=== PATIENT | male | born 1980 | race Caucasian/White ===

== ENCOUNTER 2016-07-15 18:38 | Emergency (ER) | payer SELFPAY ==
[~2016-07-15] VITALS: Ht 175.3 cm; Wt 68.0 kg
--- NOTE | 2016-07-15 20:29 | NUR ---
Account created in error, patient gave correct name and information and another account was created.
== END 2016-07-15 20:30 | disposition left against medical advice (07) ==
LOC: ER 19:28
DX: Z53.21 Procedure and treatment not carried out due to patient leaving prior to being seen by health care provider (principal)

== ENCOUNTER 2016-07-15 18:55 | Emergency (ER) | payer SELFPAY ==
[~2016-07-15] VITALS: Ht 175.3 cm; Wt 68.0 kg
[2016-07-15] MEDS ORDERED: HYDROMORPHONE 1 MG/1 ML DISP.SYRIN IM ONE (19:15)
--- NOTE | 2016-07-15 19:20 | NUR ---
Pt states "I popped back my shoulder in." DR Drew into re eval Pt. Pt requesting to be discharge
--- NOTE | 2016-07-15 19:25 | NUR ---
Patient discharged to home in stable conditon. Written and verbal after care instructions given. Patient verbalizes understanding of instructions. Walked out of ER with no distress noted
== END 2016-07-15 19:27 | disposition home or self-care (01) ==
LOC: ER 18:58 → MERGE 18:58 → ER 19:27
DX: S43.004A Unspecified dislocation of right shoulder joint, initial encounter (principal); F11.10 Opioid abuse, uncomplicated; Z88.0 Allergy status to penicillin; Z88.8 Allergy status to other drugs, medicaments and biological substances; Z59.0 Homelessness; W18.30XA Fall on same level, unspecified, initial encounter; Y93.89 Activity, other specified; Y99.8 Other external cause status; Y92.89 Other specified places as the place of occurrence of the external cause
CPT/HCPCS: 99283; A4663

== ENCOUNTER 2016-11-15 09:04 | Emergency (ER) | payer OTHER ==
[~2016-11-15] VITALS: Ht 175.3 cm; Wt 68.0 kg
--- NOTE | 2016-11-15 09:10 | NUR ---
pt in room awaiting mse.
--- NOTE | 2016-11-15 09:52 | NUR ---
PT EVALUATED BY DR ROPER. PREASCRIPTION GIVEN TO PATIENT - EXPLAINED BY DR ROPER. DISCHARGED IN STABLE CONDITION.
== END 2016-11-15 09:56 | disposition home or self-care (01) ==
LOC: ER 09:04
DX: L02.416 Cutaneous abscess of left lower limb (principal); L03.116 Cellulitis of left lower limb; Z59.0 Homelessness; Z88.0 Allergy status to penicillin; Z88.8 Allergy status to other drugs, medicaments and biological substances
CPT/HCPCS: A4663

== ENCOUNTER 2017-01-11 03:15 | Emergency (ER) | payer OTHER ==
[~2017-01-11] VITALS: Ht 175.3 cm; Wt 71.2 kg
[2017-01-11] MEDS ORDERED: MORPHINE SULFATE 2 MG/1 ML DISP.SYRIN IV ONE (04:15)
[2017-01-11] MEDS ORDERED: ONDANSETRON 4 MG/2 ML VIAL IV ONE (04:15)
[2017-01-11] MEDS ORDERED: LORAZEPAM 2 MG/1 ML VIAL IM ONE (04:45)
[2017-01-11] MEDS ORDERED: LORAZEPAM 2 MG/1 ML VIAL ONE (04:54)
--- NOTE | 2017-01-11 05:20 | NUR ---
PATIENT STATES "I THINK I POPPED BACK MY SHOULDER."
--- NOTE | 2017-01-11 05:24 | NUR ---
UNIX ADMINISTRATOR IN ROOM DOING X RAY
--- NOTE | 2017-01-11 06:37 | NUR ---
Patient discharged to home in stable conditon. Written and verbal after care instructions given. Patient verbalizes understanding of instructions. WALKED OUT OF ER WITH STEADY GAIT
[2017-01-11 06:38] VITALS: BP 128/77
== END 2017-01-11 06:39 | disposition home or self-care (01) ==
LOC: ER 03:15
DX: S43.004A Unspecified dislocation of right shoulder joint, initial encounter (principal); Z88.0 Allergy status to penicillin; W01.0XXA Fall on same level from slipping, tripping and stumbling without subsequent striking against object, initial encounter; Y93.89 Activity, other specified; Y92.9 Unspecified place or not applicable; Y99.9 Unspecified external cause status
CPT/HCPCS: 73020; 73030; A4663; J2060

== ENCOUNTER 2017-01-30 17:35 | Emergency (ER) | payer OTHER ==
[~2017-01-30] VITALS: Ht 157.5 cm; Wt 63.5 kg
--- NOTE | 2017-01-30 18:15 | NUR ---
PT IS IN ROOM #1B. DR QUINTEROS EVALUATED THE PT.
[2017-01-30] MEDS ORDERED: LORAZEPAM 0.5 MG TABLET PO ONE (19:00)
--- NOTE | 2017-01-30 19:05 | NUR ---
PT WAS D/C TO HOME. D/C INSTRUCTIONS GIVEN TO THE PT.
[2017-01-30 19:06] VITALS: BP 136/73
[2017-01-30] MEDS ORDERED: LORAZEPAM 1 MG TABLET ONE (19:11)
== END 2017-01-30 19:07 | disposition home or self-care (01) ==
LOC: ER 17:36
DX: L03.114 Cellulitis of left upper limb (principal); L03.116 Cellulitis of left lower limb; L03.115 Cellulitis of right lower limb; F11.10 Opioid abuse, uncomplicated; Z59.0 Homelessness; Z88.0 Allergy status to penicillin
CPT/HCPCS: A4663

== ENCOUNTER 2017-04-18 04:41 | Emergency (ER) | payer OTHER ==
[~2017-04-18] VITALS: Ht 172.7 cm; Wt 68.0 kg
--- NOTE | 2017-04-18 06:27 | NUR ---
Patient discharged to home in stable conditon. Written and verbal after care instructions given. Patient verbalizes understanding of instructions.
== END 2017-04-18 06:28 | disposition home or self-care (01) ==
LOC: ER 04:50
DX: Z48.01 Encounter for change or removal of surgical wound dressing (principal); L02.416 Cutaneous abscess of left lower limb; Z88.0 Allergy status to penicillin
CPT/HCPCS: A4663

== ENCOUNTER 2017-06-18 02:04 | Emergency (ER) | payer OTHER ==
[~2017-06-18] VITALS: Ht 180.3 cm; Wt 74.8 kg
--- NOTE | 2017-06-18 02:10 | NUR ---
Dr. Johnson at bedside for MSE.
--- NOTE | 2017-06-18 02:15 | NUR ---
Patient brought in by rescue, lethargic, reports pain on right shoulder, has multiple abscess cobian on arms, has history of heroine abuse.
--- NOTE | 2017-06-18 04:30 | NUR ---
Patient sleeping in bed, no acute signs of distress.
--- NOTE | 2017-06-18 06:04 | NUR ---
Patient sleeping in bed, no signs of distress.
--- NOTE | 2017-06-18 07:08 | NUR ---
Passed SBAR report to Nghia GRULLON.
--- NOTE | 2017-06-18 07:10 | NUR ---
Hands off report received from Sajan GRULLON, pt sleeping with NAD noted.
--- NOTE | 2017-06-18 07:40 | NUR ---
Written and verbal after care instructions given. Patient verbalizes understanding of instructions. Pt states he is hungry, breakfast tray ordered for pt. Pt ambulated to restroom with steady gait.
--- NOTE | 2017-06-18 08:00 | NUR ---
Pt eating breakfast.
--- NOTE | 2017-06-18 08:25 | NUR ---
Pt ambulated out of ER with steady gait.
== END 2017-06-18 08:30 | disposition home or self-care (01) ==
LOC: ER 02:04
DX: S43.004A Unspecified dislocation of right shoulder joint, initial encounter (principal); F12.10 Cannabis abuse, uncomplicated; F11.10 Opioid abuse, uncomplicated; F15.10 Other stimulant abuse, uncomplicated; Z88.0 Allergy status to penicillin; Z88.8 Allergy status to other drugs, medicaments and biological substances; Z59.0 Homelessness; X58.XXXA Exposure to other specified factors, initial encounter; Y93.89 Activity, other specified; Y92.89 Other specified places as the place of occurrence of the external cause; Y99.8 Other external cause status
CPT/HCPCS: 73020; 73030; A4663

== ENCOUNTER 2017-08-06 17:55 | Emergency (ER) | payer OTHER ==
[~2017-08-06] VITALS: Ht 180.3 cm; Wt 71.7 kg
--- NOTE | 2017-08-06 18:55 | NUR ---
Dr Johnson at the bedside for MSE.
--- NOTE | 2017-08-06 19:05 | NUR ---
REPORT TAKEN FROM MITCHEL LOWERY. ASSUMED PT CARE AT THIS TIME. PENDING XRAY.
[2017-08-06] MEDS ORDERED: CLINDAMYCIN HCL 150 MG CAPSULE ONE (19:29)
[2017-08-06] MEDS ORDERED: CLINDAMYCIN HCL 150 MG CAPSULE PO ONE (19:30)
--- NOTE | 2017-08-06 19:31 | NUR ---
PT PROVIDED SNACK. PT RESTING IN BED IN A POSITION OF COMFORT. NO DISTRESS NOTED.
--- NOTE | 2017-08-06 20:03 | NUR ---
Patient discharged to home in stable conditon. Written and verbal after care instructions given. Patient verbalizes understanding of instructions. Pt ambulatory w/ steady gait. No distress noted.
[2017-08-06 20:04] VITALS: BP 132/80
== END 2017-08-06 20:22 | disposition home or self-care (01) ==
LOC: ER 17:57
DX: L03.116 Cellulitis of left lower limb (principal); F11.10 Opioid abuse, uncomplicated; F12.10 Cannabis abuse, uncomplicated; F15.10 Other stimulant abuse, uncomplicated; Z88.0 Allergy status to penicillin; Z88.8 Allergy status to other drugs, medicaments and biological substances; Z59.0 Homelessness
CPT/HCPCS: 73590; A4663

== ENCOUNTER 2021-04-19 16:59 | Emergency (ER) | payer MEDICAID, OTHER ==
[~2021-04-19] VITALS: Ht 175.3 cm; Wt 83.9 kg
[2021-04-19] MEDS ORDERED: diphenhydrAMINE 50 MG/1 ML VIAL IM ONE (19:45)
[2021-04-19] MEDS ORDERED: HALOPERIDOL LACTATE 5 MG/1 ML VIAL IM ONE (19:45)
[2021-04-19] MEDS ORDERED: LORAZEPAM 2 MG/1 ML VIAL IM ONE (19:45)
[2021-04-19] MEDS ORDERED: IV NORMAL SALINE 1000 ML BAG IV ONE (19:45)
[2021-04-19] MEDS ORDERED: LORAZEPAM 2 MG/1 ML VIAL ONE (20:05)
[2021-04-19] MEDS ORDERED: diphenhydrAMINE 50 MG/1 ML VIAL ONE (20:05)
[2021-04-19] MEDS ORDERED: HALOPERIDOL LACTATE 5 MG/1 ML VIAL ONE ×2 (20:05→22:13)
--- NOTE | 2021-04-19 22:00 | NUR ---
Patient remains uncooperative with blood draw at this time Dr Kaur made aware.
[2021-04-19] MEDS: HALOPERIDOL LACTATE 5 MG/1 ML VIAL IM ONE (22:09)
--- NOTE | 2021-04-19 22:57 | NUR ---
Unable to obtain hep lock at this time. Dr Natasha maher.
[2021-04-19 23:14] LABS: CARBON DIOXIDE 28 mmol/L (21-32); CHLORIDE 104 mmol/L (98-107); CREATININE 0.7 mg/dL (0.6-1.3); GLUCOSE 110 mg/dL (74-106); POTASSIUM 4.2 mmol/L (3.5-5.1); UREA NITROGEN, BLOOD 11 mg/dL (7-18)
[2021-04-19 23:15] LABS: ETHANOL < 3 MG/DL (0-0)
[2021-04-19 23:20] LABS: ALANINE AMINOTRANSFERASE 31 U/L (16-63); ALKALINE PHOSPHATASE 123 U/L (50-136); ASPARTATE AMINOTRANSFERASE 24 U/L (15-37); BILIRUBIN,DIRECT 0.1 mg/dL (0.0-0.2); BILIRUBIN,TOTAL 0.2 mg/dL (0.2-1.0); TOTAL PROTEIN, SERUM 7.2 g/dL (6.4-8.2)
--- NOTE | 2021-04-19 23:30 | NUR ---
PATIENT SLEEPING, RESTRAINT RELEASE. 1:1 SITTER AT BEDSIDE.
--- NOTE | 2021-04-19 23:30 | NUR ---
PATIENT SLEEPING AT THIS TIME. 1:1 SITTER AT BEDSIDE.
[2021-04-19 23:31] LABS: HEMATOCRIT 40.3 % (36.7-47.1); MEAN CORPUSCULAR VOLUME 86.8 fL (73.0-96.2); PLATELET COUNT (AUTO) 97 K/uL (152-348)
[2021-04-19 23:38] LABS: ACETAMINOPHEN < 2.0 ug/mL (10-30)
[2021-04-19 23:46] LABS: *AMPHETAMINE, URINE POSITIVE (NEGATIVE); *CANNABINOID, URINE POSITIVE (NEGATIVE); *COCCAINE, URINE NEGATIVE (NEGATIVE); *OPIATE, URINE NEGATIVE (NEGATIVE); *PHENCYCLIDINE SCREEN,URINE NEGATIVE (NEGATIVE)
[2021-04-19 23:51] LABS: *BILIRUBIN,URIN NEGATIVE (NEGATIVE); *BLOOD, URINE NEGATIVE (NEGATIVE); *CLARITY,URINE CLEAR (CLEAR); *COLOR,URINE YELLOW (YELLOW); *KETONES,URINE NEGATIVE (NEGATIVE); *UROBILINOGEN,URINE 0.2 E.U./dl (NORMAL); LEUKOCYTE ESTERASE ,URINE NEGATIVE (NEGATIVE); NITRITE, URINE NEGATIVE (NEGATIVE); UGLUCOSE NEGATIVE (NEGATIVE)
[2021-04-19 23:58] LABS: MAGNESIUM 2.1 mg/dL (1.8-2.4)
[2021-04-20] MEDS ORDERED: CYANOCOBALAMIN 1000 MCG/ML VIAL IM ONE (00:30)
--- NOTE | 2021-04-20 01:44 | NUR ---
PATIENT SCREAMING AT TIMES, RESISTING CARE LIKE HAVE VITAL SIGNS TO BE TAKEN. 1:1 SITTER AT BEDSIDE.
[2021-04-20] MEDS ORDERED: HALOPERIDOL LACTATE 5 MG/1 ML VIAL IM ONE (01:45)
[2021-04-20] MEDS ORDERED: diphenhydrAMINE 50 MG/1 ML VIAL IM ONE (01:45)
[2021-04-20] MEDS ORDERED: LORAZEPAM 2 MG/1 ML VIAL IM ONE (01:45)
[2021-04-20] MEDS ORDERED: CYANOCOBALAMIN 1000 MCG/ML VIAL ONE (01:56)
[2021-04-20] MEDS ORDERED: diphenhydrAMINE 50 MG/1 ML VIAL ONE (01:56)
[2021-04-20] MEDS ORDERED: LORAZEPAM 2 MG/1 ML VIAL ONE (01:57)
[2021-04-20] MEDS ORDERED: HALOPERIDOL LACTATE 5 MG/1 ML VIAL ONE (01:57)
--- NOTE | 2021-04-20 07:10 | NUR ---
recieved pt in bed, one to one sitter at bedside. pt arousable, but reluctant to communicate.
--- NOTE | 2021-04-20 10:00 | NUR ---
pt voided 400ml in the urinal. pt refused bf at this time.
--- NOTE | 2021-04-20 14:00 | NUR ---
KESHAV BURR AT BEDSIDE.
--- NOTE | 2021-04-20 14:30 | NUR ---
PT AWAKE, AXOX4.
--- NOTE | 2021-04-20 15:10 | NUR ---
Patient discharged to home in stable condition. Written and verbal after care instructions given. Patient verbalizes understanding of instructions. Stressed follow up or return to ER for worsening s/s.PT WALKS IN STEADY GAIT.
--- NOTE | 2021-04-20 15:10 | NUR ---
Patient given written and verbal discharge instructions. Patient verbalizes understanding of instructions. Patient is ambulatory with steady gait. Ref[place] offer of [facility] placement. Patient given list of available shelters in surrounding area.
[2021-04-20 15:11] VITALS: BP 129/69
--- NOTE | 2021-04-20 15:12 | NUR ---
PT AXOX4.
--- NOTE | 2021-04-20 15:19 | NUR ---
Clinical Social Work Note Patient presents alert and oriented x4. Patient presents with a withdrawn mood and flat affect. SW provided patient with homeless packet and provided information regarding shelters, hot shower locations, and hot meal location. Patient accepted homeless packet and patient stated that he is going to look through packet and decide which [facility] he will go to. Patient stated that he understood the information and signed the homeless waiver. SW went to get patient a tap card, but when SW returned, patient had already left. SW went outside to look for patient but was unable to find patient,
== END 2021-04-20 15:15 | disposition home or self-care (01) ==
LOC: ER 17:01
DX: F23 Brief psychotic disorder (principal); F15.129 Other stimulant abuse with intoxication, unspecified; I45.10 Unspecified right bundle-branch block; Z88.0 Allergy status to penicillin; F32.A Depression, unspecified; R03.0 Elevated blood-pressure reading, without diagnosis of hypertension; Z20.822 Contact with and (suspected) exposure to COVID-19; Z59.00 Homelessness unspecified
CPT/HCPCS: 36415; 71045; 80048; 80076; 80299; 80307; 80320; 81003; 82607; 83735; 85025; 87040; 87426; 93005; 96372 ×3; 99285; J1200 ×2; J1630 ×3; J2060 ×2; J3420; A4663; C1758; G0480; J7030